=== PATIENT | male | born 1955 | race Caucasian/White ===

== ENCOUNTER 2022-03-25 09:25 | Inpatient (IN) | payer BC ==
[2022-03-25] MEDS ORDERED: Nitroglycerin 0.4 MG TAB (25 Tab Bottle) SL PRN (09:57)
[2022-03-25] MEDS ORDERED: Electrolyte Replacement Protocol 1 EACH FS SCH (10:00)
[2022-03-25] MEDS ORDERED: Ondansetron PF 4 MG/2 ML Vial IVP PRN (10:02)
[2022-03-25] MEDS ORDERED: Senokot S 8.6-50 MG TAB PO PRN (10:02)
[2022-03-25] MEDS ORDERED: Acetaminophen 325 MG TAB PO PRN (10:02)
[2022-03-25] MEDS ORDERED: Calcium Carbonate 500 MG ChewTAB PO PRN (10:02)
[2022-03-25] MEDS ORDERED: Ondansetron ODT 4 MG TAB PO PRN (10:02)
[2022-03-25 10:04] VITALS: BMI 31.4
[2022-03-25 10:31] LABS: Magnesium 2.2 mg/dL (1.6-2.6)
[2022-03-25] MEDS ORDERED: Atropine Sulfate 1 mg/1 ml Vial IVP PRN (10:47)
[2022-03-25 11:20] LABS: Troponin I Less than 0.010 ng/mL (< 0.028)
[2022-03-25] MEDS: Sodium Chloride 0.9% 1,000 ML IV SCH (12:10)
[2022-03-25] MEDS: Pantoprazole 40 MG VIAL IVP SCH ×2 (12:11→22:10)
[2022-03-25] MEDS: HYDROcodone/Acetaminophen 5/325 mg Tablet PO PRN ×4 (12:11→20:08)
[2022-03-25] MEDS ORDERED: Nitroglycerin 2% Ointment 1 INCH/1 GM Packet TOP SCH (14:00)
[2022-03-25] MEDS ORDERED: Ketorolac Tromethamine 30 MG/ML VIAL IVP SCH (21:45)
[2022-03-26] MEDS: Sodium Chloride 0.9% 1,000 ML IV SCH (01:00)
[2022-03-26] MEDS: HYDROcodone/Acetaminophen 5/325 mg Tablet PO PRN (03:49)
[2022-03-26 06:42] LABS: #Eosinphils 0.1 10x3/uL (0.0-0.5); #Monocytes 0.5 10x3/uL (0.0-1.1); #Neutrophils 2.9 10x3/uL (1.5-8.4); %Basophils 0.4 % (0.0-2.0); %Eosinophils 2.5 % (0.0-6.0); %Lymphocytes 35.3 % (18.0-47.0); %Monocytes 9.1 % (0.0-10.0); %Neutrophils 52.2 % (40.0-75.0); Hemoglobin 14.4 g/dL (13.5-17.5); Mean Corpuscular HGB CONC 34.9 g/dL (32.0-36.0); Mean Corpuscular Hemoglobin 29.8 pg (27.0-33.0); Mean Corpuscular Volume 85.3 fl (81.2-95.1); Platelet Count 203 10x3/uL (150-450); RBC Distribution Width 12.8 % (11.5-14.5); Red Blood Cell (RBC) Count 4.84 10x6/uL (4.32-5.72); White Blood Cell (WBC) Count 5.6 10x3/uL (3.5-10.5)
[2022-03-26 06:56] LABS: ALT (SGPT) 17 U/L (8-55); AST (SGOT) 13 U/L (5-34); Albumin 3.9 g/dL (3.4-4.8); Alkaline Phosphatase 59 U/L (40-110); Anion Gap 13 mmol/L (10-20); BUN (Urea Nitrogen) 13 mg/dL (8.4-25.7); Bilirubin, Total 0.4 mg/dL (0.2-1.2); Calc. Creatinine Clearance 115 mL/min (70-130); Calcium 8.6 mg/dL (7.8-10.44); Carbon Dioxide 22 mmol/L (23-31); Chloride 110 mmol/L (98-107); Estimated GFR 95; Globulin 2.2 g/dL (2.4-3.5); Glucose 116 mg/dL (80-115); Lipase 14 U/L (8-78); Potassium 3.9 mmol/L (3.5-5.1); Protein, Total 6.1 g/dL (5.8-8.1); Sodium 141 mmol/L (136-145)
[2022-03-26] MEDS: Aspirin 81 mg Enteric Coated Tablet PO SCH (08:24)
[2022-03-26] MEDS ORDERED: Enoxaparin Sodium 40 MG/0.4 ML SYRINGE SC SCH (09:00)
[2022-03-26] MEDS ORDERED: Iopamidol 300 61% 100 ML VIAL FS ONE (09:28)
[2022-03-26] MEDS: Ketorolac Tromethamine 30 MG/ML VIAL IVP PRN ×2 (09:57→23:00)
[2022-03-26] MEDS: Pantoprazole 40 MG VIAL IVP SCH ×2 (12:00→22:46)
[2022-03-27] MEDS: HYDROcodone/Acetaminophen 5/325 mg Tablet PO PRN (03:06)
[2022-03-27 05:36] LABS: #Eosinphils 0.3 10x3/uL (0.0-0.5); #Monocytes 0.5 10x3/uL (0.0-1.1); #Neutrophils 2.8 10x3/uL (1.5-8.4); %Basophils 0.5 % (0.0-2.0); %Eosinophils 4.1 % (0.0-6.0); %Lymphocytes 40.4 % (18.0-47.0); %Monocytes 7.8 % (0.0-10.0); %Neutrophils 46.5 % (40.0-75.0); Hemoglobin 13.8 g/dL (13.5-17.5); Mean Corpuscular HGB CONC 34.9 g/dL (32.0-36.0); Mean Corpuscular Hemoglobin 29.6 pg (27.0-33.0); Mean Corpuscular Volume 84.6 fl (81.2-95.1); Mean Platelet Volume 9.1 fl (7.4-10.4); Platelet Count 192 10x3/uL (150-450); RBC Distribution Width 12.7 % (11.5-14.5); Red Blood Cell (RBC) Count 4.67 10x6/uL (4.32-5.72); White Blood Cell (WBC) Count 6.1 10x3/uL (3.5-10.5)
[2022-03-27 06:00] LABS: ALT (SGPT) 16 U/L (8-55); AST (SGOT) 16 U/L (5-34); Albumin 3.8 g/dL (3.4-4.8); Alkaline Phosphatase 57 U/L (40-110); Anion Gap 12 mmol/L (10-20); BUN (Urea Nitrogen) 13 mg/dL (8.4-25.7); Bilirubin, Total 0.4 mg/dL (0.2-1.2); Calc. Creatinine Clearance 119 mL/min (70-130); Calcium 8.7 mg/dL (7.8-10.44); Carbon Dioxide 23 mmol/L (23-31); Chloride 110 mmol/L (98-107); Estimated GFR 96; Globulin 2.2 g/dL (2.4-3.5); Glucose 102 mg/dL (80-115); Potassium 3.8 mmol/L (3.5-5.1); Sodium 141 mmol/L (136-145)
[2022-03-27] MEDS: Aspirin 81 mg Enteric Coated Tablet PO SCH (07:22)
[2022-03-27] MEDS: Ketorolac Tromethamine 30 MG/ML VIAL IVP PRN ×3 (07:28→21:49)
[2022-03-27] MEDS ORDERED: Pantoprazole 40 MG VIAL ONE (08:15)
[2022-03-27] MEDS: Pantoprazole 40 MG VIAL IVP SCH ×2 (08:33→21:49)
[2022-03-27] MEDS ORDERED: Fentanyl 100 MCG/2 ML VIAL ONE (13:47)
[2022-03-27] MEDS ORDERED: PROPOFOL 20 ML ONE (13:47)
[2022-03-28] MEDS: Ketorolac Tromethamine 30 MG/ML VIAL IVP PRN ×3 (04:15→21:21)
[2022-03-28] MEDS ORDERED: Ketorolac Tromethamine 30 MG/ML VIAL IVP SCH (09:00)
[2022-03-28] MEDS: Pantoprazole 40 MG VIAL IVP SCH ×2 (10:42→21:22)
[2022-03-28] MEDS: Aspirin 81 mg Enteric Coated Tablet PO SCH (14:02)
[2022-03-28] MEDS ORDERED: Sodium Chloride 0.9% 1,000 ML IV SCH (23:55)
[2022-03-29] MEDS: Ketorolac Tromethamine 30 MG/ML VIAL IVP PRN ×3 (04:22→21:10)
[2022-03-29 05:33] LABS: Albumin 3.9 g/dL (3.4-4.8); Alkaline Phosphatase 65 U/L (40-110); Anion Gap 11 mmol/L (10-20); BUN (Urea Nitrogen) 18 mg/dL (8.4-25.7); Bilirubin, Total 0.6 mg/dL (0.2-1.2); Calc. Creatinine Clearance 101 mL/min (70-130); Calcium 8.7 mg/dL (7.8-10.44); Carbon Dioxide 26 mmol/L (23-31); Chloride 107 mmol/L (98-107); Estimated GFR 82; Globulin 2.2 g/dL (2.4-3.5); Glucose 100 mg/dL (80-115); Potassium 3.6 mmol/L (3.5-5.1); Protein, Total 6.1 g/dL (5.8-8.1); Sodium 140 mmol/L (136-145)
[2022-03-29 05:34] LABS: ALT (SGPT) 14 U/L (8-55); AST (SGOT) 15 U/L (5-34)
[2022-03-29] MEDS: Aspirin 81 mg Enteric Coated Tablet PO SCH (11:32)
[2022-03-29] MEDS: Pantoprazole 40 MG VIAL IVP SCH (11:33)
[2022-03-29] MEDS ORDERED: Sodium Chloride 0.9% 1,000 ML IV SCH (23:55)
[2022-03-30] MEDS: Ketorolac Tromethamine 30 MG/ML VIAL IVP PRN (04:52)
[2022-03-30] MEDS ORDERED: Piperacillin/Tazobactam 3.375 GM in Sodium Chloride 0.9% 100 ML IVPB SCH (06:00)
[2022-03-30] MEDS ORDERED: Pantoprazole 40 MG VIAL IVP SCH (09:00)
[2022-03-30] MEDS: Aspirin 81 mg Enteric Coated Tablet PO SCH (09:49)
[2022-03-30] MEDS ORDERED: EPINEPHrine 1 MG/ML AMP ONE (09:52)
[2022-03-30] MEDS ORDERED: Bupivacaine PF 0.5% 30 ML VIAL ONE (09:53)
[2022-03-30] MEDS ORDERED: Piperacillin/Tazobactam 3.375 GM VIAL ONE (09:53)
[2022-03-30] MEDS ORDERED: PROPOFOL 20 ML ONE (10:00)
[2022-03-30] MEDS ORDERED: Rocuronium Bromide 10 MG/ML (10ML VIAL) ONE (10:00)
[2022-03-30] MEDS ORDERED: Fentanyl 100 MCG/2 ML VIAL ONE ×2 (10:00→11:10)
[2022-03-30] MEDS ORDERED: Lidocaine 2% PF 5 ML VIAL ONE (10:00)
[2022-03-30] MEDS ORDERED: Ketorolac Tromethamine 30 MG/ML VIAL ONE (10:34)
[2022-03-30] MEDS ORDERED: Dexamethasone 4 mg/ml Vial ONE (10:34)
[2022-03-30] MEDS ORDERED: Ondansetron PF 4 MG/2 ML Vial ONE ×2 (10:34→11:51)
[2022-03-30] MEDS ORDERED: Glycopyrrolate 0.2 MG/ML 5 ML SYRINGE ONE (10:34)
[2022-03-30] MEDS ORDERED: ePHEDrine Sulfate 50 MG/10 ML VIAL ONE (10:42)
[2022-03-30 13:21] VITALS: BP 124/59; TEMP 97.6
== END 2022-03-30 17:33 | disposition home or self-care (01) | DRG 419 ==
LOC: INTOOBSV 09:25 → CSHTELE 09:25 → OBSVTOIN 03-27 11:23
PROVIDERS: ADMIT Internal Medicine; ATTEND Internal Medicine
PROC: 0DJ08ZZ Inspection of Upper Intestinal Tract, Via Natural or Artificial Opening Endoscopic (ICD-10-PCS; 2022-03-27)
PROC: 0FT44ZZ Resection of Gallbladder, Percutaneous Endoscopic Approach (ICD-10-PCS; principal; 2022-03-30)
PROC: 8E0W4CZ Robotic Assisted Procedure of Trunk Region, Percutaneous Endoscopic Approach (ICD-10-PCS; 2022-03-30)
DX: K82.8 Other specified diseases of gallbladder (principal); K81.1 Chronic cholecystitis; K21.9 Gastro-esophageal reflux disease without esophagitis; R00.1 Bradycardia, unspecified; Z20.822 Contact with and (suspected) exposure to COVID-19; E78.5 Hyperlipidemia, unspecified; Z90.49 Acquired absence of other specified parts of digestive tract; Z79.899 Other long term (current) drug therapy; Z98.890 Other specified postprocedural states
CPT/HCPCS: 36415; 74177; 76705; 78227; 80053; 83690; 83735; 85025; 85379; 88304; 93306; 94760; 96374; 96375; 96376; A9537; C1776; C9113; G0378; J0171; J1100; J1885; J2001; J2405; J2543; J2704; J3010; J7050; Q9967; S0020; U0003; U0005